=== PATIENT | male | born 1940 | race Caucasian/White ===

== ENCOUNTER 2016-10-22 13:23 | Inpatient (IN) | payer MEDICARE, BC ==
--- NOTE | ~2016-10-22 | DS ---
Discharge Summary [id number] [place]. [address] NAME: BERTO RUSSELL : 44 STATUS : DIS IN PAT#: [id number] AGE: 76 ADM/REG DATE : 10/23/16 MR#: [id number] REPORT SERV DATE: 10/26/16 DICTATED BY: DEJON KNOX DATE: 10/25/16 REPORT STATUS : Draft TRANSCRIBED BY: MODL DATE: 10/25/16 ADMISSION DATE: 10/23/2016 DISCHARGE DATE: 10/25/2016 DISCHARGE DIAGNOSES: 1. New onset of atrial fibrillation during this hospitalization, converted to sinus. 2. Acute diarrhea, present on admission, resolving. 3. Abdominal pain, present on admission, resolving. 4. Acute kidney injury, resolved with IV fluids. 5. Chronic obstructive pulmonary disease. 6. Gastroesophageal reflux disease. 7. Obstructive sleep apnea. CONSULTS: 1. Cardiology. 2. GI. PROCEDURES AND IMAGIN. Echocardiogram showed normal functioning LV and RV. The patient's ejection fraction was 60%. 2. Myocardial perfusion stress study was negative. HOSPITAL COURSE: This is a 76-year-old gentleman who was admitted to the hospital with abdominal pain, acute diarrhea, and acute kidney injury. For details please refer to the excellent H and P by Dr. Coulter. On the day of admission, the patient actually developed an atrial fibrillation for which Cardiology was consulted. The patient did convert to normal sinus rhythm less than a day later. Echocardiogram as well as myocardial perfusion study was performed and results are as above. As far as the acute diarrhea and abdominal pain goes he is symptomatically improved throughout the hospital stay. Stool study was negative for ova and parasites, C. diff, and shiga toxins. Stool leukocytes were also negative. The patient was given antidiarrheal to which he responded really well too. The patient is now being discharged home in stable condition to be followed as an outpatient. DISPOSITION: Home. DISCHARGE MEDICATIONS: 1. Coreg 6.25 mg p.o. b.i.d. as a new medication. 2. Xarelto 20 mg p.o. with supper as a new medication. 3. Lomotil 2.5 mg p.o. four times daily p.r.n. as a new medication. 4. Prednisone Dose Pack as a new medication. Otherwise, no changes. FOLLOWUP: 1. Please follow up with PCP in the next one to two weeks. 2. Please follow up with Cardiology in the next four to six weeks. A total of 25 minutes spent in coordinating this patient's discharge today. Discharge Summary [place] [address] [address] NAME: BERTO RUSSELL : 42 STATUS : DIS IN PAT#: [id number] AGE: 76 ADM/REG DATE : 10/23/16 MR#: [id number] REPORT SERV DATE: 10/26/16 DICTATED BY: DEJON KNOX DATE: 10/25/16 REPORT STATUS : Draft TRANSCRIBED BY: DAMIAN DATE: 10/25/16 [facility] [place]/DAMIAN Dejon Knox MD / [id number] CC: MD Juan German M.D.
--- NOTE | ~2016-10-22 | CN ---
Consultation Report [address] [place]. [address] NAME: BERTO RUSSELL : 42 STATUS : ADM Babita PAT#: [id number] AGE: 76 ADM/REG DATE : 10/22/16 MR#: [id number] REPORT SERV DATE: 10/24/16 DICTATED BY: MARTIN JOHN DATE: 10/23/16 REPORT STATUS : Draft TRANSCRIBED BY: MODAleks DATE: 10/23/16 CONSULTATION DATE OF CONSULTATION: HISTORY OF PRESENT ILLNESS: This is a 76-year-old man, whom I am asked to evaluate for diarrhea and crampy abdominal pain. This gentleman is known from prior evaluation and he has a long history of left-sided ulcerative colitis since 2007. He was treated initially with Asacol and with then Colazal since 2013. His last colonoscopy in January of 2015, revealed patchy proctosigmoiditis with some microscopic inflammation in the transverse colon. He has done well basically on balsalazide and was having no problems when he was last in the clinic in May. He said about a week ago, he ate at [employer], got sick, and had diarrhea, and some cramping for about two or three days. This resolved, but then recurred two or three days ago. He phoned the office, but did not make an appointment. Then began to have some chest pain, so he came to the emergency room and was admitted. PAST MEDICAL HISTORY: 1. GERD. 2. Esophageal stricture. 3. Ulcerative proctosigmoiditis, diagnosed in 2007. 4. Adenomatous colon polyps. 5. Hypertension. 6. Melanoma. 7. Degenerative joint disease. PAST SURGICAL HISTORY: Status post right ear surgery, status post right eye surgery, status post appendectomy. MEDICATIONS: Meloxicam, magnesium, potassium, vitamin B12, omeprazole 40 mg a day, balsalazide 2.25 g three tabs twice a day, benazepril, multivitamin eyedrops, and Aleve as needed. ALLERGIES: NO KNOWN DRUG ALLERGIES. FAMILY HISTORY: His mother is . There is no GI malignancy. 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 He does not smoke or abuse alcohol. REVIEW OF SYSTEMS: Otherwise unremarkable for constitutional, endocrine, neurologic, psychiatric, ocular, ENT, Consultation Report [address] [place]. [address] NAME: BERTO RUSSELL : 44 STATUS : ADM Babita PAT#: [id number] AGE: 76 ADM/REG DATE : 10/22/16 MR#: [id number] REPORT SERV DATE: 10/24/16 DICTATED BY: MARTIN JOHN DATE: 10/23/16 REPORT STATUS : Draft TRANSCRIBED BY: MODL DATE: 10/23/16 pulmonary, cardiovascular, GI, , or rheumatologic symptoms except for as noted above. PHYSICAL EXAMINATION: GENERAL: He is an obese gentleman, in no acute distress. VITAL SIGNS: Afebrile. SKIN: Warm and dry. LUNGS: Clear. ABDOMEN: Obese, but soft and nontender. EXTREMITIES: No edema. LABORATORY DATA: Procalcitonin normal, potassium 4.0, albumin 2.5, liver enzymes are normal. Amylase are normal. Lipase are normal. Troponin normal. White count mildly elevated at 12.6, hemoglobin 17.1, INR 1.2. Sedimentation rate normal. Lactate normal. C diff negative. Noncontrast abdominal pelvic CT scan shows no acute findings, but some mild diverticulosis and bilateral inguinal hernias, greater on the right than the left. IMPRESSION: 1. Gastroesophageal reflux disease. 2. Chest pain. 3. History of left-sided ulcerative colitis with recent cramping and diarrhea. RECOMMENDATIONS: 1. Stool studies. 2. Balsalazide 2.25 g three times a day. 3. Oral prednisone taper with 40 mg daily for a week, 30 mg daily for a week, 20 mg daily for a week, and then 10 mg daily for a week. 4. I agree with plans for cardiac evaluation with echo and stress test. 5. I could even consider an EGD if the upper abdominal and chest pain persist and his cardiac evaluation is negative. /MODL Martin John M.D. / [id number] CC: MD Juan German M.D.
--- NOTE | ~2016-10-22 | HP ---
History And Physical [id number] [facility] [place]. [address] NAME: BERTO RUSSELL : 42 STATUS : ADM Babita PAT#: [id number] AGE: 76 ADM/REG DATE : 10/22/16 MR#: [id number] REPORT SERV DATE: 10/23/16 DICTATED BY: MARCIAL JULIAN DATE: 10/22/16 REPORT STATUS : Draft TRANSCRIBED BY: MODL DATE: 10/22/16 DATE OF ADMISSION: 10/22/2016 CHIEF COMPLAINT: A 76-year-old male presenting with persistent diarrhea and abdominal pain. HISTORY OF PRESENT ILLNESS: The patient's history was obtained through an interview with the patient, coupled with review of [employer] and [facility] medical records. The patient wonders if he has had a similar episode of diarrhea connected to his current presentation. He states that four weeks ago he ate pancakes with bacons at [employer] and subsequently had four days of severe diarrhea and abdominal cramps. It eventually subsided spontaneously, but he states that his current episode is very similar to the one suffered about a month ago. 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 He does not recall any specific meal that might have brought it on. He states that every day he has 10 plus diarrhea bowel movements a day and sometimes they are so explosive that he loses bowel continence and soils his clothes. He has had nausea and several episodes of vomiting. He has chills, a cold sweat, but no fevers. He describes abdominal discomfort across the lower quadrants of the abdomen. They do not affect his chronic bilateral inguinal hernias. A cramp in quality, that "comes and goes," up to 10/10 in severity, that becomes debilitating. He describes chronic chest discomfort, that he believes is related to reflux symptoms, but it has been stable recently. He describes light headedness. No confusion. No shortness of breath. No cough. REVIEW OF SYSTEMS: Otherwise, the 14-point review of systems was obtained and was negative. PAST MEDICAL HISTORY: 1. COPD. 2. Gastroesophageal reflux disorder. 3. Obstructive sleep apnea, but intolerant of CPAP. 4. Colon polyps, seen by Dr. John. 5. Peptic ulcer disease. 6. No cardiac disease history. PAST SURGICAL HISTORY: 1. Appendectomy. 2. Right inguinal hernia repair x2. 3. Right mastoidectomy. History And Physical [address] [address] NAME: BERTO RUSSELL : 42 STATUS : ADM Babita PAT#: [id number] AGE: 76 ADM/REG DATE : 10/22/16 MR#: [id number] REPORT SERV DATE: 10/23/16 DICTATED BY: MARCIAL JULIAN DATE: 10/22/16 REPORT STATUS : Draft TRANSCRIBED BY: DAMIAN DATE: 10/22/16 4. Left leg fracture repair and left arm fracture repair. 5. Appendectomy. 6. Melanoma removed from the back in 1999. ALLERGIES: NO KNOWN DRUG ALLERGIES. SOCIAL HISTORY: Quit smoking in 1988. He has a few alcoholic drinks a week, but not every nights, often will be wine or vodka. He is single, never . Has no children. He lives alone. 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 FAMILY HISTORY: Heart disease. CURRENT MEDICATIONS: Include Colazal three tablets p.o. b.i.d., benazepril 20 mg p.o. daily, vitamin B12, magnesium 250 mg p.o. daily, Mobic 7.5 mg p.o. daily, multivitamin, omeprazole 40 mg p.o. daily, potassium 550 mg p.o. daily, Anoro Ellipta inhaled daily, and eye drops. PHYSICAL EXAMINATION: VITAL SIGNS: Temperature 97.8, pulse 94, blood pressure 143/77, respiratory rate 16, and O2 saturation 95% on room air. GENERAL: A pleasant, cooperative male, in no evidence of current distress. HEENT: Pupils are equal, round, and reactive to light. No conjunctival pallor. No scleral icterus. Nares are patent. Oropharynx is clear of obstruction. Dry mucous membranes. NECK: Trachea midline. No thyromegaly. LYMPH: No cervical lymphadenopathy. No supraclavicular lymphadenopathy. RESPIRATORY: Clear to auscultation at bases. No wheezes, rales, or rhonchi. Normal respiratory effort. CARDIOVASCULAR: Regular rate and rhythm. No murmurs, rubs, or gallops. No extremity edema is appreciated. ABDOMEN: Soft, nontender, and nondistended now. No hepatosplenomegaly. DERMATOLOGICAL: Warm and dry extremities. No pallor. No cyanosis. PSYCHIATRIC: Normal affect. Good mood. Alert and oriented x3. LABORATORY DATA: White blood cell count 15.2, hemoglobin 19, hematocrit 54, and platelets 185. Sodium 138, potassium 4.0, chloride 106, bicarb 20, BUN 31, creatinine 1.40 from baseline creatinine of 1.0, glucose 155. Urinalysis is negative for infection with 6 hyaline casts, lipase 162. C difficile toxin negative. Liver enzymes within normal limits. STUDIES: 1. CT scan shows right greater than left inguinal hernia, but uncomplicated, also uncomplicated diverticulosis. ASSESSMENT AND PLAN: 1. Diarrhea. Negative Clostridium difficile toxin. Check ova and parasites. Provide supportive care. 2. Systemic inflammatory response syndrome. Negative urinalysis. Negative CT scan of the abdomen and pelvis. Follow closely. Check procalcitonin and check stool studies. 3. Abdominal pain. Consult Dr. John, customer support consultant. History And Physical [address] [address] NAME: BERTO RUSSELL : 44 STATUS : ADM Babita PAT#: [id number] AGE: 76 ADM/REG DATE : 10/22/16 MR#: [id number] REPORT SERV DATE: 10/23/16 DICTATED BY: MARCIAL JULIAN DATE: 10/22/16 REPORT STATUS : Draft TRANSCRIBED BY: DAMIAN DATE: 10/22/16 4. Acute kidney injury. Place on IV fluids and monitor. KPL/MODL Marcial Julian M.D. / [id number] CC: MD Juan German M.D. Alan Shikoh, M.D.
--- NOTE | ~2016-10-22 | CN ---
Consultation Report [facility] [address] [place]. [address] NAME: BERTO HERRERA : 44 STATUS : ADM Babita PAT#: [id number] AGE: 76 ADM/REG DATE : 10/22/16 MR#: [id number] REPORT SERV DATE: 10/23/16 DICTATED BY: NAWAF HALL DATE: 10/23/16 REPORT STATUS : Draft TRANSCRIBED BY: MODL DATE: 10/23/16 DATE OF CONSULTATION: 10/23/2016 REASON FOR CONSULTATION: New-onset atrial fibrillation, atypical pains. HISTORY OF PRESENT ILLNESS: Mr. Herrera is a pleasant 76-year-old gentleman with a history of hypertension; TASNEEM, not on CPAP; COPD; and GERD, who presents with some nonspecified abdominal as well as left-sided chest pains that occur at random. His abdominal pains and diarrhea started about five days ago. His left-sided chest pains, he had attributed to his abdominal process, however, is uncertain of why he has been having these. They have been occurring for greater than five days. He has been having them for several weeks, and they had been progressive in nature. He otherwise does not have any associated symptoms with his abdominal and chest pains other than the diarrhea. He has no other complaints at this time. While here, on the date of admission, he went into paroxysmal atrial fibrillation x3 episode and spontaneously converted to sinus rhythm without therapy. He was asymptomatic during these episodes. He does not recall having any palpitations, dizziness, or loss of consciousness outside of the hospital either. ALLERGIES: NONE. FAMILY HISTORY: Noncontributory. PAST MEDICAL HISTORY: As above. SOCIAL HISTORY: The patient is a former smoker. Drinks alcohol socially. He is single, has not been , and does not have children. He lives alone. 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 PHYSICAL EXAMINATION: VITAL SIGNS: Blood pressure 116/60; pulse 76, sinus; temperature 97.7. GENERAL: Well developed, well nourished, no acute distress. NEURO: Awake, alert and oriented x3; no focal deficits, appropriate mood. HEENT: Moist mucous membranes, anicteric sclerae, no nasal discharge. NECK: No JVD, no carotid bruit. LUNGS: Clear to auscultation bilaterally, no wheezes, rales or rhonchi. CV: Regular rhythm, normal S1/S2, no murmurs, rubs or gallops. ABDOMEN: Soft, non-tender, non-distended, no rebound or guarding. EXTREMITIES: No pitting edema, normal distal pulses. SKIN: Warm, dry and intact; no rash. PERTINENT TEST FINDINGS: Potassium 4.0, creatinine 1.18. White blood cell count decreasing from 15.2 to 12.6, platelets 143. Troponin less than 0.02. TSH 2.5. EKG during rapid heart rate demonstrates atrial fibrillation with RVR as well as 0.5 to [address] depressions anterolaterally. Telemetry with sinus rhythm currently, and three Consultation Report [address] [place]. [address] NAME: BERTO HERRERA : 44 STATUS : ADM Baibta PAT#: [id number] AGE: 76 ADM/REG DATE : 10/22/16 MR#: [id number] REPORT SERV DATE: 10/23/16 DICTATED BY: NAWAF HALL DATE: 10/23/16 REPORT STATUS : Draft TRANSCRIBED BY: DAMIAN DATE: 10/23/16 episodes of PAF as previously described. IMPRESSION AND PLAN: Mr. Herrera is a pleasant 76-year-old gentleman with a history of hypertension; chronic obstructive pulmonary disease; obstructive sleep apnea, not on CPAP; and gastroesophageal reflux disease, who presents with abdominal/chest pains, diarrhea over the past several days. His chest pains, however, have been going on longer and have been getting worse. They are atypical in nature. Accordingly, I have the following recommendations by problem below: 1. New-onset paroxysmal atrial fibrillation -- start Eliquis 5 mg p.o. b.i.d. (CHADS-VASc score = 2, for age and hypertension). Start Coreg 3.125 mg p.o. b.i.d. Check an echocardiogram. 2. Atypical chest pains/ST changes with rapid ventricular response -- given his atypical chest pains and ST changes during rapid ventricular rates, I believe that he warrants a stress MPI at this point in time to definitively exclude ischemia as a potential contributor to his symptoms. We will plan for this tomorrow. 3. Abdominal pain/diarrhea -- as per primary. Leukocytosis is improving. Rehydrated with interval improvement in his renal parameters as well. VR/MODL Nawaf Hall MD / [id number] CC: MD Juan German M.D.
[2016-10-22 12:01] LABS: ASCORBIC ACID (UR NOT ORDER) NEG (NEG); BILIRUBIN, URINE NEGATIVE (NEG); ER URINALYSIS TAT 0 Hrs 07 Mins; KETONE, URINE 20 MG/DL (NEG); LEUKOCYTE ESTERASE(NOT OR NEG (NEG); NITRITE (URINE) NEG (NEG); WBC (NOT ORDERED) (RFLEX) 1 (0-5)
[2016-10-22 12:02] LABS: BASOPHILS 0.1 %; BASOPHILS ABSOLUTE 0.01 10/3/uL (0.0-0.16); EOSINOPHILS 1.3 %; HEMOGLOBIN 18.5 g/dL (13.6-17.8); IMMATURE GRANULOCYTES 0.5 %; IMMATURE GRANULOCYTES ABSOLUTE 0.07 10/3/uL (0.0-0.11); LYMPHOCYTES 12.7 %; LYMPHOCYTES ABSOLUTE 1.93 10/3/uL (0.67-4.30); MEAN CORPUS HGB CONC 34.1 g/dL (32.0-36.0); MEAN CORPUSCULAR HEMOGLOB 30.8 pg (26.0-34.0); MEAN CORPUSCULAR VOLUME 90.2 fL (80-100); MEAN PLATELET VOLUME 13.1 fL (9.2-13.0); MONOCYTES 4.7 %; MONOCYTES ABSOLUTE 0.71 10/3/uL (0.21-1.20); NEUTROPHILS 80.7 %; NEUTROPHILS ABSOLUTE 12.27 10/3/uL (2.02-8.40); RBC DISTRIBUTION WIDTH 13.5 % (12.0-16.0); RED CELL COUNT 6.01 10/6/uL (4.7-6.1)
[2016-10-22 12:05] LABS: ER CBC TAT 0 Hrs 10 Mins; HEMATOCRIT 54.2 % (40.0-51.0); MANUAL DIFF NO %; PLATELET COUNT 185 10/3/uL (150-400); WHITE BLOOD CELLS 15.2 10/3/uL (4.5-10.5)
[2016-10-22 12:15] LABS: ALBUMIN 3.2 G/DL (3.5-5.0); ALKALINE PHOSPHATASE 62 U/L (45-117); BUN (BLOOD UREA NITROGEN) 31 MG/DL (6-23); CALCIUM, SERUM 8.2 MG/DL (8.5-10.4); CHLORIDE, SERUM 106 MMOL/L (96-112); CO2 (CARBON DIOXIDE) 20 MMOL/L (24-34); GFR AFRICAN AMERICAN 57 ML/MIN (>=60); GFR NON AFRICAN AMERICAN 49 ML/MIN (>=60); GLOBULIN 3.3 G/DL (2.5-4.1); GLUCOSE, SERUM 155 MG/DL (60-99); SGOT(AST) 11 U/L (5-40); SGPT(ALT) 18 U/L (5-65); SODIUM, SERUM 138 MMOL/L (135-148); TOTAL BILIRUBIN 0.9 MG/DL (0-1.2); TOTAL PROTEIN 6.5 G/DL (6.0-8.5)
[2016-10-22] MEDS ORDERED: MOBIC7.5 PO (17:24)
[2016-10-22] MEDS ORDERED: LOTE20 PO (17:24)
[2016-10-22] MEDS ORDERED: COLAZAL750 MG PO (17:24)
[2016-10-22] MEDS ORDERED: PRILOSEC40 MG PO (17:24)
[2016-10-22] MEDS ORDERED: THERGRANM PO (17:25)
[2016-10-22] MEDS ORDERED: CYANO1000T PO (17:25)
[2016-10-22] MEDS ORDERED: MAG OXIDE250 MG PO (17:25)
[2016-10-22] MEDS ORDERED: POT GLUCONAT2.5 MEQ PO (17:25)
[2016-10-22] MEDS ORDERED: ANOROELLIPTA INH (17:25)
[2016-10-22] MEDS ORDERED: TRAVATAN OPH (17:26)
[2016-10-23 03:33] LABS: BASOPHILS 0.1 %; BASOPHILS ABSOLUTE 0.01 10/3/uL (0.0-0.16); EOSINOPHILS 1.9 %; EOSINOPHILS ABSOLUTE 0.24 10/3/uL (0.0-0.53); HEMOGLOBIN 17.1 g/dL (13.6-17.8); IMMATURE GRANULOCYTES 0.6 %; IMMATURE GRANULOCYTES ABSOLUTE 0.08 10/3/uL (0.0-0.11); LYMPHOCYTES 19.5 %; LYMPHOCYTES ABSOLUTE 2.46 10/3/uL (0.67-4.30); MEAN CORPUS HGB CONC 33.5 g/dL (32.0-36.0); MEAN CORPUSCULAR HEMOGLOB 30.4 pg (26.0-34.0); MEAN CORPUSCULAR VOLUME 90.6 fL (80-100); MONOCYTES 5.5 %; NEUTROPHILS 72.4 %; NEUTROPHILS ABSOLUTE 9.15 10/3/uL (2.02-8.40); PLATELET COUNT 143 10/3/uL (150-400); RBC DISTRIBUTION WIDTH 13.9 % (12.0-16.0); RED CELL COUNT 5.63 10/6/uL (4.7-6.1); WHITE BLOOD CELLS 12.6 10/3/uL (4.5-10.5)
[2016-10-23 03:34] LABS: MANUAL DIFF NO %
[2016-10-23 03:39] LABS: INTERNATIONAL NORMAL RATI 1.2 UNITS (-)
[2016-10-23 03:40] LABS: PARTIAL THROMBO TIME 33.5 SEC (22.5-37.2)
[2016-10-23 03:56] LABS: BUN (BLOOD UREA NITROGEN) 28 MG/DL (6-23); C-REACTIVE PROTEIN 9.5 MG/L (<8.0); CALCIUM, SERUM 7.6 MG/DL (8.5-10.4); CHLORIDE, SERUM 111 MMOL/L (96-112); CO2 (CARBON DIOXIDE) 24 MMOL/L (24-34); CREATININE 1.18 MG/DL (0.70-1.30); FREE T4 1.15 NG/DL (0.76-1.46); GFR AFRICAN AMERICAN 70 ML/MIN (>=60); GFR NON AFRICAN AMERICAN 60 ML/MIN (>=60); SGOT(AST) 12 U/L (5-40); SGPT(ALT) 11 U/L (5-65); SODIUM, SERUM 141 MMOL/L (135-148); TOTAL BILIRUBIN 0.7 MG/DL (0-1.2); TROPONIN I <0.02 NG/ML (<0.05)
[2016-10-23 03:57] LABS: ALBUMIN 2.5 G/DL (3.5-5.0); ALKALINE PHOSPHATASE 48 U/L (45-117); GLOBULIN 2.6 G/DL (2.5-4.1); GLUCOSE, SERUM 116 MG/DL (60-99); TOTAL PROTEIN 5.1 G/DL (6.0-8.5)
[2016-10-23 06:09] LABS: SED RATE 1 MM/HR (0-15)
[2016-10-23 06:34] LABS: PROCALCITONIN <0.05 ng/mL (<0.5)
[2016-10-24 06:01] LABS: BASOPHILS 0.1 %; BASOPHILS ABSOLUTE 0.01 10/3/uL (0.0-0.16); HEMATOCRIT 47.5 % (40.0-51.0); HEMOGLOBIN 15.8 g/dL (13.6-17.8); IMMATURE GRANULOCYTES 0.3 %; IMMATURE GRANULOCYTES ABSOLUTE 0.03 10/3/uL (0.0-0.11); LYMPHOCYTES 19.2 %; LYMPHOCYTES ABSOLUTE 1.96 10/3/uL (0.67-4.30); MEAN CORPUS HGB CONC 33.3 g/dL (32.0-36.0); MEAN CORPUSCULAR HEMOGLOB 30.2 pg (26.0-34.0); MEAN CORPUSCULAR VOLUME 90.6 fL (80-100); MEAN PLATELET VOLUME 13.1 fL (9.2-13.0); MONOCYTES 7.3 %; MONOCYTES ABSOLUTE 0.75 10/3/uL (0.21-1.20); NEUTROPHILS 72.1 %; NEUTROPHILS ABSOLUTE 7.37 10/3/uL (2.02-8.40); PLATELET COUNT 154 10/3/uL (150-400); RBC DISTRIBUTION WIDTH 13.9 % (12.0-16.0); RED CELL COUNT 5.24 10/6/uL (4.7-6.1); WHITE BLOOD CELLS 10.2 10/3/uL (4.5-10.5)
[2016-10-24 06:06] LABS: MANUAL DIFF NO %
[2016-10-24 06:21] LABS: CALCIUM, SERUM 7.9 MG/DL (8.5-10.4); CHLORIDE, SERUM 108 MMOL/L (96-112); CO2 (CARBON DIOXIDE) 27 MMOL/L (24-34); CREATININE 1.04 MG/DL (0.70-1.30); GFR AFRICAN AMERICAN 82 ML/MIN (>=60); GFR NON AFRICAN AMERICAN 70 ML/MIN (>=60); GLUCOSE, SERUM 113 MG/DL (60-99); POTASSIUM, SERUM 3.9 MMOL/L (3.5-5.3); SODIUM, SERUM 144 MMOL/L (135-148)
[2016-10-24 06:23] LABS: BUN (BLOOD UREA NITROGEN) 19 MG/DL (6-23)
[2016-10-25] MEDS ORDERED: LOM PO (09:19)
[2016-10-25] MEDS ORDERED: COREG6 PO (09:20)
[2016-10-25] MEDS ORDERED: XARELTO20 MG PO (09:21)
[2016-10-25] MEDS ORDERED: STERAPRED DS10 MG (09:22)
== END 2016-10-25 15:09 | disposition home or self-care (01) | DRG 683 ==
LOC: ER 13:23 → 6NO 19:12
PROVIDERS: Emergency Medicine; Hospitalist; Internal Medicine
DX: N17.9 Acute kidney failure, unspecified (principal); K51.50 Left sided colitis without complications; R65.10 Systemic inflammatory response syndrome (SIRS) of non-infectious origin without acute organ dysfunction; I48.0 Paroxysmal atrial fibrillation; J44.9 Chronic obstructive pulmonary disease, unspecified; R19.7 Diarrhea, unspecified; I10 Essential (primary) hypertension; M19.90 Unspecified osteoarthritis, unspecified site; G47.33 Obstructive sleep apnea (adult) (pediatric); K21.9 Gastro-esophageal reflux disease without esophagitis; I20.9 Angina pectoris, unspecified; K22.2 Esophageal obstruction; Z87.891 Personal history of nicotine dependence; Z86.010 Personal history of colon polyps; Z85.820 Personal history of malignant melanoma of skin
CPT/HCPCS: 74177; 78452; 80048; 80053; 81001; 82150; 83605; 83690; 83735; 84145; 84439; 84443; 84484; 85025; 85610; 85652; 85730; 86140; 87045; 87046; 87046-59; 87328; 87329; 87493; 87493-59; 87899; 87899-59; 89055; 93005; 93017; 96374; 96375; 99285; A9270-GY; A9502; C8929; J1170; J1956; J2405; J2543; Q9957; Q9967